=== PATIENT | male | born 1965 | race Caucasian/White ===

== ENCOUNTER 2024-02-02 18:08 | Inpatient (IN) | payer OTHER ==
[~2024-02-02 18:08] MED LIST: MORPHINE SULFATE 4 MG/ML SYRINGE ONE; cefTRIAXone 2 GM VIAL ONE
[2024-02-02] MEDS ORDERED: SODIUM CHLORIDE 0.9% 1,000 ML BAG ONE (18:40)
[2024-02-02] MEDS ORDERED: SODIUM CHLORIDE 0.9% 250 ML BAG ONE (18:40)
[2024-02-02] MEDS ORDERED: SODIUM CHLORIDE 0.9% 50 ML BAG ONE (18:40)
[2024-02-02] MEDS ORDERED: VANCOMYCIN 500 MG VIAL ONE (18:40)
[2024-02-02] MEDS ORDERED: VANCOMYCIN 1,000 MG VIAL ONE (18:40)
[2024-02-02] MEDS ORDERED: BACITRACIN OINT 1 EACH PACKET TOPICAL ONE (18:48)
[2024-02-02] MEDS ORDERED: MORPHINE SULFATE 4 MG/ML SYRINGE ONE (21:08)
[2024-02-03] MEDS ORDERED: BUPIVACAINE (PF) 0.5% 30 ML VIAL ONE (16:05)
[2024-02-03] MEDS ORDERED: LACTATED RINGERS 1,000 ML BAG ONE (16:05)
[2024-02-03] MEDS ORDERED: LIDOCAINE 1% INJ 10MG/ML (10 ML MDV) ONE (16:05)
[2024-02-03] MEDS ORDERED: ONDANSETRON 4 MG/2 ML VIAL ONE (16:39)
[2024-02-03] MEDS ORDERED: fentaNYL (PF) 50 MCG/ML 2 ML AMP ONE (16:43)
[2024-02-03] MEDS ORDERED: LIDOCAINE 1% INJ 10MG/ML (20 ML MDV) ONE (16:43)
[2024-02-03] MEDS ORDERED: KETOROLAC 15 MG/ML 1 ML VIAL ONE (16:43)
[2024-02-03] MEDS ORDERED: MIDAZOLAM 2 MG/2 ML VIAL ONE (16:43)
[2024-02-03] MEDS ORDERED: PROPOFOL 10 MG/ML 20 ML VIAL IV ONE (16:43)
[2024-02-03] MEDS ORDERED: HYDROmorphone 0.5 MG/0.5 ML SYRINGE ONE (17:46)
[2024-02-03] MEDS ORDERED: traMADol 50 MG TAB ONE (21:35)
[2024-02-03] MEDS ORDERED: ENOXAPARIN 40 MG/0.4 ML SYRINGE SQ ONE (21:36)
[2024-02-04] MEDS ORDERED: MORPHINE SULFATE 2 MG/ML SYRINGE ONE ×2 (01:16→06:23)
[2024-02-04] MEDS ORDERED: cefTRIAXone 2 GM VIAL ONE (02:10)
--- NOTE | 2024-03-14 12:01 | XR ---
Patient Bran Cash ID [id number] Order # EXAMINATION TYPE: XR hand complete RT DATE OF EXAM: 02/13/2024 COMPARISON: No comparison available on downtime PACS. HISTORY: Swelling right hand, cellulitis possible foreign body TECHNIQUE: 3 view right hand FINDINGS: Degenerative joint changes are present in the proximal and distal interphalangeal joint spa nidia. Some narrowing of the carpal phalangeal joint spaces is present. There may be an old fracture of the distal fifth metacarpal. No radiopaque foreign bodies are evident. Soft tissue swelling is present. IMPRESSION: 1. Moderate degenerative joint changes throughout the right hand. 2. Diffuse soft tissue swelling. 3. No radiopaque foreign body identified.
== END 2024-02-04 12:41 | disposition home or self-care (01) | DRG 364 ==
LOC: 4SSUR 18:08
PROVIDERS: ADMIT Internal Medicine; ATTEND Internal Medicine
PROC: 0J9J0ZZ Drainage of Right Hand Subcutaneous Tissue and Fascia, Open Approach (ICD-10-PCS; principal; 2024-02-02)
DX: L02.511 Cutaneous abscess of right hand (principal); L03.113 Cellulitis of right upper limb; L02.214 Cutaneous abscess of groin; E11.9 Type 2 diabetes mellitus without complications; B35.6 Tinea cruris; F17.210 Nicotine dependence, cigarettes, uncomplicated; Z88.0 Allergy status to penicillin; Z87.19 Personal history of other diseases of the digestive system; Z90.49 Acquired absence of other specified parts of digestive tract
CPT/HCPCS: 80053; 83735; 84100; 84484; 85025; 85610; 85730; 87040; 87070; 87075; 87077; 87186; 87205; 99285

== ENCOUNTER 2024-02-15 14:46 | Emergency (ER) | payer OTHER ==
[2024-02-15] MEDS ORDERED: HYDROmorphone 1 MG/ML 1 ML SYRINGE ONE (21:58)
[2024-02-15] MEDS ORDERED: ONDANSETRON 4 MG/2 ML VIAL ONE (21:58)
[2024-02-15] MEDS ORDERED: SODIUM CHLORIDE 0.9% 1,000 ML BAG ONE (22:00)
--- NOTE | 2024-03-15 11:35 | US ---
Patient: Bran Cash Ordering Physician: Unknown, Unknown ID: [id number] Phone, Pager: Phone: N/A Pager: N/A : N/A Age/Gender: N/A, N/A Primary Location: N/A Procedure: US scrotum with doppler Luciano dy Date: 02/15/2024 10:27:00 PM EXAMINATION TYPE: US scrotum. Grayscale and color Doppler Duplex imaging performed of the scrotum. DATE OF EXAM: 02/16/2024 COMPARISON: NONE CLINICAL INDICATION: Unknown, old with history of ; HISTORY: LEFT SIDED PAIN FOR 1 WEEK. HX OF HERNIA REPAIR. TECH IMPRESSION: SEND TO [facility] RT TESTICLE: 4.3 X 2.7 X 2.9CM. APPEARS WNL BEST SEEN LT TESTICLE: 5.0 X 2.4 X 2.7CM, APPEARS WNL BEST SEEN RT EPI HEAD: THERE IS A SMALL 0.3 CM ANECHOIC AREA SEEN, PROBABLE EPI HEAD CYST. LT EPI HEAD: UNABLE TO VISUALIZE THERE IS A SMALL HYDROCELE SEEN ON THE RIGHT SIDE. THERE IS A 7.8 X 5.5 X 7.2 CM HYPOECHOIC AREA WITH LOW LEVEL ECHOES SEEN LATERAL AND INFERIOR TO THE LEFT TESTICLE. THE CONTENTS WITHIN THIS AREA APPEA R TO BE MOBILE. IMPRESSION: 1. Large left-sided hydrocele with internal debris.
== END 2024-02-16 01:20 | disposition home or self-care (01) ==
LOC: EC 14:46
DX: N43.3 Hydrocele, unspecified (principal)
CPT/HCPCS: 74177; 76870; 93975; 99284